=== PATIENT | female | born 1985 | race Caucasian/White ===

== ENCOUNTER 2019-03-10 22:28 | Emergency (ER) | payer OTHER ==
[~2019-03-10] VITALS: Ht 157.5 cm; Wt 59.0 kg
--- NOTE | 2019-03-10 22:40 | NUR ---
at bedside for MSE,
--- NOTE | 2019-03-10 22:52 | NUR ---
Pt. transferred off unit via stretcher for CT head,
[2019-03-10] MEDS ORDERED: OXYCODONE/APAP 5-325 MG TABLET ONE (23:13)
[2019-03-10] MEDS ORDERED: OXYCODONE/APAP 5-325 MG TABLET PO ONE (23:15)
--- NOTE | 2019-03-10 23:24 | NUR ---
Patient discharged to home in stable conditon. Written and verbal after care instructions given. Patient verbalizes understanding of instructions. Pt. d/c per MD order, d/c papers signed, all belongings w/ pt., ID band removed, ambulated off unit w/ steady gait accompanied by male engine installer, JOSE
--- NOTE | 2019-03-10 23:27 | NUR ---
Pt. left before imaging CD arrived from Rad.,
== END 2019-03-10 23:28 | disposition home or self-care (01) ==
LOC: ER 22:30
DX: S00.03XA Contusion of scalp, initial encounter (principal); F17.200 Nicotine dependence, unspecified, uncomplicated; W10.9XXA Fall (on) (from) unspecified stairs and steps, initial encounter; Y93.89 Activity, other specified; Y92.89 Other specified places as the place of occurrence of the external cause; Y99.8 Other external cause status
CPT/HCPCS: 70450; A4663

== ENCOUNTER 2019-09-17 18:42 | Emergency (ER) | payer OTHER ==
[~2019-09-17] VITALS: Ht 157.5 cm; Wt 58.5 kg
--- NOTE | 2019-09-17 19:35 | NUR ---
DR. MISHRA AT BEDSIDE FOR MSE.
[2019-09-17] MEDS ORDERED: HYDROCODONE/APAP 10-325 MG TABLET PO ONE (19:45)
[2019-09-17] MEDS ORDERED: HYDROCODONE/APAP 10-325 MG TABLET ONE (19:45)
--- NOTE | 2019-09-17 21:08 | NUR ---
Patient discharged to home in stable conditon. Written and verbal after care instructions given. Patient verbalizes understanding of instructions. PATIENT LEFT WITH STABLE GAIT.
[2019-09-17 21:09] VITALS: BP 123/68
== END 2019-09-17 21:09 | disposition home or self-care (01) ==
LOC: ER 18:47
DX: S16.1XXA Strain of muscle, fascia and tendon at neck level, initial encounter (principal); M25.551 Pain in right hip; M79.641 Pain in right hand; F17.200 Nicotine dependence, unspecified, uncomplicated; W01.0XXA Fall on same level from slipping, tripping and stumbling without subsequent striking against object, initial encounter; Y93.89 Activity, other specified; Y92.89 Other specified places as the place of occurrence of the external cause; Y99.8 Other external cause status
CPT/HCPCS: 73502; A4663